=== PATIENT | female | born 1950 | race African-American/Black ===

== ENCOUNTER 2022-12-22 22:42 | Inpatient (IN) | payer OTHER ==
[2022-12-22] MEDS ORDERED: ACETAMINOPHEN 1000 MG/100 ML BAG IVPB ONE (23:17)
[2022-12-22] MEDS ORDERED: ONDANSETRON 4 MG/2 ML VIAL IVPUSH ONE (23:17)
[2022-12-22] MEDS ORDERED: SODIUM CHLORIDE 0.9% 500 ML INFUS.BAG IV ONE (23:19)
[2022-12-22] MEDS ORDERED: ACETAMINOPHEN INJECTION 100 ML IVPB ONE (23:25)
[2022-12-22] MEDS ORDERED: ONDANSETRON 4 MG/2 ML VIAL ONE ×2 (23:26→23:55)
[2022-12-22 23:59] LABS: MCHC 33.3 g/dl (32.0-36.0); MEAN CELL VOLUME 87.2 fl (80-96); MEAN PLT VOLUME 8.2 fl (7.5-11.1); PLATELET COUNT 296 10^3/uL (134-434); RBC 5.17 M/mm3 (3.60-5.2); RDW 14.4 % (11.6-15.6); WHITE BLOOD COUNT 12.6 K/mm3 (4.0-10.0)
[2022-12-23 00:29] LABS: POTASSIUM 4.1 mmol/L (3.5-5.1)
[2022-12-23 00:30] LABS: CALCIUM 10.2 mg/dL (8.5-10.1)
[2022-12-23 00:32] LABS: ALBUMIN 3.9 g/dl (3.4-5.0); BLOOD UREA NITROGEN 22.2 mg/dL (7-18); MAGNESIUM 1.8 mg/dL (1.8-2.4)
[2022-12-23 00:33] LABS: CREATININE 0.8 mg/dL (0.55-1.3)
[2022-12-23 04:00] LABS: EPI CELLS 6 /uL (0-25.1); HYALINE CASTS 5 /uL (0-3.1); URINE APPEARANCE CLEAR; URINE BACTERIA >9,000 /uL (0-1359); URINE BILIRUBIN NEGATIVE (NEGATIVE); URINE COLOR YELLOW; URINE GLUCOSE (UA) NEGATIVE (NEGATIVE); URINE KETONE NEGATIVE (NEGATIVE); URINE LEUK ESTERASE 2+ (NEGATIVE); URINE NITRITE POSITIVE (NEGATIVE); URINE PROTEIN NEGATIVE (NEGATIVE); URINE RBC 19 /uL (0-23.9); URINE UROBILINOGEN 0.2 mg/dL (0.2-1.0); URINE WBC 382 /uL (0-25.8)
[2022-12-23] MEDS ORDERED: CEFTRIAXONE 1 GM in DEXTROSE 5%-WATER - 100 ML IVPB ONE (04:16)
[2022-12-23] MEDS ORDERED: MECLIZINE HCL 12.5 MG TABLET PO ONE (04:16)
[2022-12-23] MEDS ORDERED: MECLIZINE HCL 12.5 MG TABLET ONE (04:21)
[2022-12-23] MEDS ORDERED: CEFTRIAXONE 1 GM/50 ML BAG ONE (04:22)
[2022-12-23 07:21] LABS: ANISOCYTOSIS 2+; MACROCYTOSIS 0; ROULEAU 1+
[2022-12-23] MEDS ORDERED: ENOXAPARIN NA (PORCINE) 40 MG/0.4 ML DISP.SYRIN SQ SCH (10:00)
[2022-12-23] MEDS ORDERED: VALSARTAN 80 MG TABLET PO SCH (10:00)
[2022-12-23] MEDS ORDERED: SODIUM CHLORIDE 1,000 ML IV SCH (10:00)
[2022-12-23] MEDS ORDERED: ROSUVASTATIN CA 20 MG TABLET ONE (10:46)
[2022-12-23] MEDS ORDERED: APIXABAN 5 MG TABLET ONE (10:46)
[2022-12-23] MEDS: CINACALCET HCL 30 MG TAB (FP) PO SCH ×2 (11:37→21:21)
[2022-12-23] MEDS: APIXABAN 5 MG TABLET PO SCH ×2 (11:37→21:21)
[2022-12-23] MEDS ORDERED: GABAPENTIN 400 MG CAPSULE ONE (16:08)
[2022-12-23] MEDS: GABAPENTIN 400 MG CAPSULE PO SCH ×2 (16:09→21:21)
[2022-12-23 17:16] VITALS: BMI 42.3
[2022-12-23] MEDS: ROSUVASTATIN CA 20 MG TABLET PO SCH (21:21)
[2022-12-24] MEDS: ACETAMINOPHEN 325 MG TABLET (FP) PO PRN (03:15)
[2022-12-24] MEDS: GABAPENTIN 400 MG CAPSULE PO SCH ×3 (05:29→21:18)
[2022-12-24] MEDS: CEFTRIAXONE 1 GM in DEXTROSE 5%-WATER - 50 ML IVPB SCH (09:49)
[2022-12-24] MEDS: CINACALCET HCL 30 MG TAB (FP) PO SCH (09:50)
[2022-12-24] MEDS: APIXABAN 5 MG TABLET PO SCH ×2 (09:50→21:18)
[2022-12-24] MEDS: ROSUVASTATIN CA 20 MG TABLET PO SCH (21:18)
[2022-12-25] MEDS: GABAPENTIN 400 MG CAPSULE PO SCH ×3 (05:15→21:15)
[2022-12-25] MEDS: CEFTRIAXONE 1 GM in DEXTROSE 5%-WATER - 50 ML IVPB SCH (09:55)
[2022-12-25] MEDS: APIXABAN 5 MG TABLET PO SCH ×2 (09:55→21:15)
[2022-12-25] MEDS: ROSUVASTATIN CA 20 MG TABLET PO SCH (21:15)
[2022-12-26] MEDS: GABAPENTIN 400 MG CAPSULE PO SCH (05:08)
[2022-12-26] MEDS: CEFTRIAXONE 1 GM in DEXTROSE 5%-WATER - 50 ML IVPB SCH (09:07)
[2022-12-26] MEDS: APIXABAN 5 MG TABLET PO SCH ×2 (09:07→21:40)
[2022-12-26] MEDS: ACETAMINOPHEN 325 MG TABLET (FP) PO PRN (09:07)
[2022-12-26 09:10] LABS: BASO % 0.5 % (0-2.0); EOS % 1.1 % (0-4.5); HEMATOCRIT 40.8 % (32.4-45.2); HEMOGLOBIN 13.2 GM/dL (10.7-15.3); LYMPH % 27.9 % (8-40); MCH 28.8 pg (25.7-33.7); MCHC 32.3 g/dl (32.0-36.0); MEAN CELL VOLUME 88.9 fl (80-96); MONO % 9.4 % (3.8-10.2); NEUT % 61.1 % (42.8-82.8); PLATELET COUNT 253 10^3/uL (134-434); RBC 4.59 M/mm3 (3.60-5.2); RDW 13.8 % (11.6-15.6); WHITE BLOOD COUNT 6.6 K/mm3 (4.0-10.0)
[2022-12-26 09:20] LABS: POTASSIUM 3.7 mmol/L (3.5-5.1)
[2022-12-26 09:29] LABS: BLOOD UREA NITROGEN 12.6 mg/dL (7-18); CALCIUM 9.6 mg/dL (8.5-10.1)
[2022-12-26 09:32] LABS: CREATININE 0.5 mg/dL (0.55-1.3)
[2022-12-26 09:34] LABS: BILIRUBIN,TOTAL 0.5 mg/dL (0.2-1); TOT PROT 6.2 g/dl (6.4-8.2)
[2022-12-26 09:40] LABS: ALBUMIN 2.9 g/dl (3.4-5.0)
[2022-12-26] MEDS: CINACALCET HCL 30 MG TAB (FP) PO SCH ×2 (09:50→21:39)
[2022-12-26] MEDS: LACTOBACILLUS ACIDOPHILUS 1 TABLET PO SCH (09:50)
[2022-12-26] MEDS: CEFUROXIME AXETIL 250 MG TABLET PO SCH ×2 (13:18→22:24)
[2022-12-26] MEDS: GABAPENTIN 300 MG CAPSULE PO SCH ×2 (13:18→21:39)
[2022-12-26] MEDS: ROSUVASTATIN CA 20 MG TABLET PO SCH (21:40)
[2022-12-27] MEDS: ACETAMINOPHEN 325 MG TABLET (FP) PO PRN (03:52)
[2022-12-27] MEDS: GABAPENTIN 300 MG CAPSULE PO SCH ×3 (06:17→23:00)
[2022-12-27] MEDS: CINACALCET HCL 30 MG TAB (FP) PO SCH ×2 (09:19→23:00)
[2022-12-27] MEDS: APIXABAN 5 MG TABLET PO SCH ×2 (09:19→23:00)
[2022-12-27] MEDS: LACTOBACILLUS ACIDOPHILUS 1 TABLET PO SCH (09:19)
[2022-12-27] MEDS: CEFUROXIME AXETIL 250 MG TABLET PO SCH ×2 (09:19→23:00)
[2022-12-27] MEDS: ROSUVASTATIN CA 20 MG TABLET PO SCH (23:00)
[2022-12-28] MEDS: ACETAMINOPHEN 325 MG TABLET (FP) PO PRN ×3 (04:28→23:42)
[2022-12-28] MEDS: GABAPENTIN 300 MG CAPSULE PO SCH ×2 (06:37→13:20)
[2022-12-28 09:21] LABS: BASO % 0.6 % (0-2.0); HEMATOCRIT 42.6 % (32.4-45.2); HEMOGLOBIN 13.7 GM/dL (10.7-15.3); LYMPH % 20.5 % (8-40); MCH 28.7 pg (25.7-33.7); MCHC 32.2 g/dl (32.0-36.0); MEAN CELL VOLUME 89.1 fl (80-96); MONO % 7.4 % (3.8-10.2); NEUT % 70.5 % (42.8-82.8); PLATELET COUNT 267 10^3/uL (134-434); RBC 4.78 M/mm3 (3.60-5.2); RDW 13.7 % (11.6-15.6); WHITE BLOOD COUNT 9.8 K/mm3 (4.0-10.0)
[2022-12-28 09:43] LABS: POTASSIUM 3.9 mmol/L (3.5-5.1)
[2022-12-28 09:51] LABS: ALBUMIN 2.9 g/dl (3.4-5.0); BLOOD UREA NITROGEN 13.1 mg/dL (7-18)
[2022-12-28 09:54] LABS: CREATININE 0.5 mg/dL (0.55-1.3)
[2022-12-28 09:56] LABS: BILIRUBIN,TOTAL 0.7 mg/dL (0.2-1); TOT PROT 6.2 g/dl (6.4-8.2)
[2022-12-28] MEDS: CEFUROXIME AXETIL 250 MG TABLET PO SCH ×2 (10:22→21:26)
[2022-12-28] MEDS: LACTOBACILLUS ACIDOPHILUS 1 TABLET PO SCH (10:22)
[2022-12-28] MEDS: APIXABAN 5 MG TABLET PO SCH ×2 (10:22→21:26)
[2022-12-28] MEDS: CINACALCET HCL 30 MG TAB (FP) PO SCH ×2 (10:22→21:26)
[2022-12-28] MEDS: LIDOCAINE 4% PATCH TP SCH (15:16)
[2022-12-28] MEDS: ROSUVASTATIN CA 20 MG TABLET PO SCH (21:25)
[2022-12-28] MEDS: GABAPENTIN 400 MG CAPSULE PO SCH (21:26)
[2022-12-28] MEDS: LIDOCAINE PATCH REMOVAL MC SCH (21:27)
[2022-12-29] MEDS: ACETAMINOPHEN 325 MG TABLET (FP) PO PRN (05:22)
[2022-12-29] MEDS: GABAPENTIN 400 MG CAPSULE PO SCH ×3 (05:24→21:05)
[2022-12-29 10:42] LABS: BASO % 0.6 % (0-2.0); EOS % 0.9 % (0-4.5); HEMATOCRIT 40.5 % (32.4-45.2); HEMOGLOBIN 13.1 GM/dL (10.7-15.3); LYMPH % 28.7 % (8-40); MCH 28.5 pg (25.7-33.7); MCHC 32.3 g/dl (32.0-36.0); MEAN CELL VOLUME 88.4 fl (80-96); MEAN PLT VOLUME 8.2 fl (7.5-11.1); MONO % 8.5 % (3.8-10.2); NEUT % 61.3 % (42.8-82.8); PLATELET COUNT 254 10^3/uL (134-434); RBC 4.58 M/mm3 (3.60-5.2); RDW 13.7 % (11.6-15.6); WHITE BLOOD COUNT 7.8 K/mm3 (4.0-10.0)
[2022-12-29] MEDS: LACTOBACILLUS ACIDOPHILUS 1 TABLET PO SCH (10:48)
[2022-12-29] MEDS: CINACALCET HCL 30 MG TAB (FP) PO SCH ×2 (10:48→21:06)
[2022-12-29] MEDS: LIDOCAINE 4% PATCH TP SCH (10:48)
[2022-12-29] MEDS: ASPIRIN COATED 81 MG TABLET.EC PO SCH (10:48)
[2022-12-29] MEDS: APIXABAN 5 MG TABLET PO SCH ×2 (10:49→21:05)
[2022-12-29] MEDS: CEFUROXIME AXETIL 250 MG TABLET PO SCH ×2 (10:49→21:05)
[2022-12-29 11:00] LABS: POTASSIUM 3.7 mmol/L (3.5-5.1)
[2022-12-29 11:11] LABS: BLOOD UREA NITROGEN 12.8 mg/dL (7-18); CALCIUM 8.9 mg/dL (8.5-10.1)
[2022-12-29 11:12] LABS: ALBUMIN 2.7 g/dl (3.4-5.0)
[2022-12-29 11:14] LABS: CREATININE 0.5 mg/dL (0.55-1.3)
[2022-12-29 11:16] LABS: BILIRUBIN,TOTAL 0.5 mg/dL (0.2-1)
[2022-12-29] MEDS: ROSUVASTATIN CA 20 MG TABLET PO SCH (21:05)
[2022-12-29] MEDS: SENNOSIDES 8.8 MG/5 ML SYRUP PO SCH (21:05)
[2022-12-29] MEDS: LIDOCAINE PATCH REMOVAL MC SCH (21:28)
[2022-12-30] MEDS: GABAPENTIN 400 MG CAPSULE PO SCH ×3 (05:23→21:25)
[2022-12-30] MEDS: POLYETHYLENE GLYCOL (HEALTHYLAX) 3350 17 GM PACKET PO SCH (06:04)
[2022-12-30] MEDS: LACTOBACILLUS ACIDOPHILUS 1 TABLET PO SCH (09:35)
[2022-12-30] MEDS: APIXABAN 5 MG TABLET PO SCH ×2 (09:35→21:25)
[2022-12-30] MEDS: ASPIRIN COATED 81 MG TABLET.EC PO SCH (09:35)
[2022-12-30] MEDS: CINACALCET HCL 30 MG TAB (FP) PO SCH (09:35)
[2022-12-30] MEDS: CEFUROXIME AXETIL 250 MG TABLET PO SCH ×2 (09:35→21:24)
[2022-12-30] MEDS: LIDOCAINE 4% PATCH TP SCH (11:18)
[2022-12-30] MEDS ORDERED: LACTATED RINGERS SOLUTION 1,000 ML/1,000 ML INFUS.BAG IV SCH (16:45)
[2022-12-30] MEDS: SENNOSIDES 8.8 MG/5 ML SYRUP PO SCH (21:24)
[2022-12-30] MEDS: ROSUVASTATIN CA 20 MG TABLET PO SCH (21:25)
[2022-12-30] MEDS: LIDOCAINE PATCH REMOVAL MC SCH (21:26)
[2022-12-31] MEDS: GABAPENTIN 400 MG CAPSULE PO SCH ×3 (06:21→21:19)
[2022-12-31] MEDS: POLYETHYLENE GLYCOL (HEALTHYLAX) 3350 17 GM PACKET PO SCH (06:21)
[2022-12-31] MEDS: LIDOCAINE 4% PATCH TP SCH (10:06)
[2022-12-31] MEDS: APIXABAN 5 MG TABLET PO SCH ×2 (10:06→21:18)
[2022-12-31] MEDS: CINACALCET HCL 30 MG TAB (FP) PO SCH ×2 (10:07→21:18)
[2022-12-31] MEDS: ASPIRIN COATED 81 MG TABLET.EC PO SCH (10:07)
[2022-12-31] MEDS: LACTOBACILLUS ACIDOPHILUS 1 TABLET PO SCH (10:07)
[2022-12-31 10:44] LABS: BASO % 0.9 % (0-2.0); EOS % 1.4 % (0-4.5); HEMATOCRIT 44.4 % (32.4-45.2); LYMPH % 29.3 % (8-40); MCH 28.1 pg (25.7-33.7); MCHC 31.5 g/dl (32.0-36.0); MEAN PLT VOLUME 8.3 fl (7.5-11.1); MONO % 6.4 % (3.8-10.2); PLATELET COUNT 276 10^3/uL (134-434); RBC 4.99 M/mm3 (3.60-5.2); RDW 13.8 % (11.6-15.6); WHITE BLOOD COUNT 7.5 K/mm3 (4.0-10.0)
[2022-12-31 11:17] LABS: POTASSIUM 4.4 mmol/L (3.5-5.1)
[2022-12-31 11:39] LABS: CALCIUM 10.1 mg/dL (8.5-10.1)
[2022-12-31 11:40] LABS: ALBUMIN 2.9 g/dl (3.4-5.0); PHOSPHOROUS 3.1 mg/dL (2.5-4.9)
[2022-12-31 11:42] LABS: CREATININE 0.5 mg/dL (0.55-1.3)
[2022-12-31 11:43] LABS: MAGNESIUM 1.8 mg/dL (1.8-2.4)
[2022-12-31 11:48] LABS: BLOOD UREA NITROGEN 14.7 mg/dL (7-18)
[2022-12-31 11:51] LABS: TOT PROT 6.7 g/dl (6.4-8.2)
[2022-12-31 11:57] LABS: BILIRUBIN,TOTAL 0.4 mg/dL (0.2-1)
[2022-12-31] MEDS: ROSUVASTATIN CA 20 MG TABLET PO SCH (21:19)
[2022-12-31] MEDS: SENNOSIDES 8.8 MG/5 ML SYRUP PO SCH (21:19)
[2022-12-31] MEDS: LIDOCAINE PATCH REMOVAL MC SCH (21:20)
[2023-01-01] MEDS: POLYETHYLENE GLYCOL (HEALTHYLAX) 3350 17 GM PACKET PO SCH (06:23)
[2023-01-01] MEDS: GABAPENTIN 400 MG CAPSULE PO SCH ×3 (06:23→22:06)
[2023-01-01] MEDS: CINACALCET HCL 30 MG TAB (FP) PO SCH ×3 (08:45→22:05)
[2023-01-01] MEDS: ASPIRIN COATED 81 MG TABLET.EC PO SCH (09:12)
[2023-01-01] MEDS: LACTOBACILLUS ACIDOPHILUS 1 TABLET PO SCH (09:12)
[2023-01-01] MEDS: APIXABAN 5 MG TABLET PO SCH ×2 (09:12→22:06)
[2023-01-01] MEDS: LIDOCAINE 4% PATCH TP SCH (09:12)
[2023-01-01] MEDS: LIDOCAINE PATCH REMOVAL MC SCH (22:06)
[2023-01-01] MEDS: ROSUVASTATIN CA 20 MG TABLET PO SCH (22:06)
[2023-01-01] MEDS: SENNOSIDES 8.8 MG/5 ML SYRUP PO SCH (22:06)
[2023-01-02] MEDS: GABAPENTIN 400 MG CAPSULE PO SCH ×3 (05:08→21:05)
[2023-01-02] MEDS: POLYETHYLENE GLYCOL (HEALTHYLAX) 3350 17 GM PACKET PO SCH (06:11)
[2023-01-02 08:56] LABS: EOS % 1.5 % (0-4.5); HEMATOCRIT 40.7 % (32.4-45.2); HEMOGLOBIN 13.3 GM/dL (10.7-15.3); LYMPH % 28.8 % (8-40); MCH 28.7 pg (25.7-33.7); MCHC 32.6 g/dl (32.0-36.0); MEAN CELL VOLUME 87.9 fl (80-96); MEAN PLT VOLUME 8.1 fl (7.5-11.1); MONO % 7.2 % (3.8-10.2); NEUT % 61.5 % (42.8-82.8); PLATELET COUNT 269 10^3/uL (134-434); RBC 4.63 M/mm3 (3.60-5.2); RDW 13.6 % (11.6-15.6); WHITE BLOOD COUNT 7.3 K/mm3 (4.0-10.0)
[2023-01-02 09:07] LABS: POTASSIUM 4.1 mmol/L (3.5-5.1)
[2023-01-02 09:14] LABS: CALCIUM 9.4 mg/dL (8.5-10.1)
[2023-01-02 09:15] LABS: ALBUMIN 2.8 g/dl (3.4-5.0); BLOOD UREA NITROGEN 18.9 mg/dL (7-18)
[2023-01-02 09:18] LABS: CREATININE 0.6 mg/dL (0.55-1.3)
[2023-01-02 09:20] LABS: BILIRUBIN,TOTAL 0.6 mg/dL (0.2-1); TOT PROT 6.3 g/dl (6.4-8.2)
[2023-01-02] MEDS: LIDOCAINE 4% PATCH TP SCH (09:29)
[2023-01-02] MEDS: LACTOBACILLUS ACIDOPHILUS 1 TABLET PO SCH (09:30)
[2023-01-02] MEDS: CINACALCET HCL 30 MG TAB (FP) PO SCH ×2 (09:30→21:05)
[2023-01-02] MEDS: APIXABAN 5 MG TABLET PO SCH ×2 (09:30→21:05)
[2023-01-02] MEDS: ASPIRIN COATED 81 MG TABLET.EC PO SCH (09:30)
[2023-01-02] MEDS: LIDOCAINE PATCH REMOVAL MC SCH (21:05)
[2023-01-02] MEDS: ROSUVASTATIN CA 20 MG TABLET PO SCH (21:05)
[2023-01-02] MEDS: SENNOSIDES 8.8 MG/5 ML SYRUP PO SCH (21:06)
[2023-01-03] MEDS: GABAPENTIN 400 MG CAPSULE PO SCH (05:36)
[2023-01-03] MEDS: POLYETHYLENE GLYCOL (HEALTHYLAX) 3350 17 GM PACKET PO SCH (07:21)
[2023-01-03] MEDS: CINACALCET HCL 30 MG TAB (FP) PO SCH ×2 (10:02→22:49)
[2023-01-03] MEDS: LIDOCAINE 4% PATCH TP SCH (10:02)
[2023-01-03] MEDS: LACTOBACILLUS ACIDOPHILUS 1 TABLET PO SCH (10:02)
[2023-01-03] MEDS: APIXABAN 5 MG TABLET PO SCH ×2 (10:02→22:49)
[2023-01-03] MEDS: ASPIRIN COATED 81 MG TABLET.EC PO SCH (10:03)
[2023-01-03] MEDS: ACETAMINOPHEN 325 MG TABLET (FP) PO PRN (12:08)
[2023-01-03] MEDS: GABAPENTIN 300 MG CAPSULE PO SCH ×2 (14:11→22:48)
[2023-01-03] MEDS: SENNOSIDES 8.8 MG/5 ML SYRUP PO SCH (22:48)
[2023-01-03] MEDS: ROSUVASTATIN CA 20 MG TABLET PO SCH (22:48)
[2023-01-03] MEDS: LIDOCAINE PATCH REMOVAL MC SCH (22:49)
[2023-01-04] MEDS: GABAPENTIN 300 MG CAPSULE PO SCH ×3 (06:13→22:11)
[2023-01-04] MEDS: POLYETHYLENE GLYCOL (HEALTHYLAX) 3350 17 GM PACKET PO SCH (06:13)
[2023-01-04] MEDS: ACETAMINOPHEN 325 MG TABLET (FP) PO PRN (10:01)
[2023-01-04] MEDS: LIDOCAINE 4% PATCH TP SCH (10:01)
[2023-01-04] MEDS: LACTOBACILLUS ACIDOPHILUS 1 TABLET PO SCH (10:01)
[2023-01-04] MEDS: APIXABAN 5 MG TABLET PO SCH ×2 (10:01→22:11)
[2023-01-04] MEDS: CINACALCET HCL 30 MG TAB (FP) PO SCH ×2 (10:01→22:11)
[2023-01-04] MEDS: ASPIRIN COATED 81 MG TABLET.EC PO SCH (10:01)
[2023-01-04] MEDS: ROSUVASTATIN CA 20 MG TABLET PO SCH (22:11)
[2023-01-04] MEDS: SENNOSIDES 8.8 MG/5 ML SYRUP PO SCH (22:11)
[2023-01-04] MEDS: LIDOCAINE PATCH REMOVAL MC SCH (22:12)
[2023-01-05] MEDS: POLYETHYLENE GLYCOL (HEALTHYLAX) 3350 17 GM PACKET PO SCH (06:25)
[2023-01-05] MEDS: GABAPENTIN 300 MG CAPSULE PO SCH ×3 (06:25→21:42)
[2023-01-05] MEDS: ASPIRIN COATED 81 MG TABLET.EC PO SCH (10:03)
[2023-01-05] MEDS: CINACALCET HCL 30 MG TAB (FP) PO SCH ×2 (10:03→21:42)
[2023-01-05] MEDS: LIDOCAINE 4% PATCH TP SCH (10:03)
[2023-01-05] MEDS: APIXABAN 5 MG TABLET PO SCH ×2 (10:03→21:42)
[2023-01-05] MEDS: LACTOBACILLUS ACIDOPHILUS 1 TABLET PO SCH (10:03)
[2023-01-05] MEDS: ACETAMINOPHEN 325 MG TABLET (FP) PO PRN (17:45)
[2023-01-05] MEDS: ROSUVASTATIN CA 20 MG TABLET PO SCH (21:42)
[2023-01-05] MEDS: LIDOCAINE PATCH REMOVAL MC SCH (21:42)
[2023-01-05] MEDS: SENNOSIDES 8.8 MG/5 ML SYRUP PO SCH (21:42)
[2023-01-06] MEDS: GABAPENTIN 300 MG CAPSULE PO SCH ×3 (05:36→21:43)
[2023-01-06] MEDS: POLYETHYLENE GLYCOL (HEALTHYLAX) 3350 17 GM PACKET PO SCH (06:11)
[2023-01-06] MEDS: CINACALCET HCL 30 MG TAB (FP) PO SCH ×2 (10:10→21:43)
[2023-01-06] MEDS: APIXABAN 5 MG TABLET PO SCH ×2 (10:10→21:43)
[2023-01-06] MEDS: ASPIRIN COATED 81 MG TABLET.EC PO SCH (10:10)
[2023-01-06] MEDS: LIDOCAINE 4% PATCH TP SCH (10:11)
[2023-01-06] MEDS: ACETAMINOPHEN 325 MG TABLET (FP) PO PRN (10:11)
[2023-01-06] MEDS: ROSUVASTATIN CA 20 MG TABLET PO SCH (21:43)
[2023-01-06] MEDS: SENNOSIDES 8.8 MG/5 ML SYRUP PO SCH (21:43)
[2023-01-06] MEDS: LIDOCAINE PATCH REMOVAL MC SCH (21:44)
[2023-01-07] MEDS: POLYETHYLENE GLYCOL (HEALTHYLAX) 3350 17 GM PACKET PO SCH (06:19)
[2023-01-07] MEDS: GABAPENTIN 300 MG CAPSULE PO SCH ×3 (06:19→22:13)
[2023-01-07] MEDS: CINACALCET HCL 30 MG TAB (FP) PO SCH ×2 (09:55→22:13)
[2023-01-07] MEDS: LIDOCAINE 4% PATCH TP SCH (09:55)
[2023-01-07] MEDS: ASPIRIN COATED 81 MG TABLET.EC PO SCH (09:55)
[2023-01-07] MEDS: APIXABAN 5 MG TABLET PO SCH ×2 (09:55→22:13)
[2023-01-07] MEDS: SENNOSIDES 8.8 MG/5 ML SYRUP PO SCH (22:12)
[2023-01-07] MEDS: ACETAMINOPHEN 325 MG TABLET (FP) PO PRN (22:13)
[2023-01-07] MEDS: LIDOCAINE PATCH REMOVAL MC SCH (22:14)
[2023-01-07] MEDS: ROSUVASTATIN CA 20 MG TABLET PO SCH (22:14)
[2023-01-08] MEDS: GABAPENTIN 300 MG CAPSULE PO SCH (05:33)
[2023-01-08] MEDS: POLYETHYLENE GLYCOL (HEALTHYLAX) 3350 17 GM PACKET PO SCH (06:05)
[2023-01-08 08:48] VITALS: BP 109/59; PULSE 68; RESP 19; TEMP 98
[2023-01-08] MEDS: CINACALCET HCL 30 MG TAB (FP) PO SCH (09:32)
[2023-01-08] MEDS: APIXABAN 5 MG TABLET PO SCH (09:32)
[2023-01-08] MEDS: LIDOCAINE 4% PATCH TP SCH (09:32)
[2023-01-08] MEDS: ASPIRIN COATED 81 MG TABLET.EC PO SCH (09:32)
== END 2023-01-08 13:10 | DRG 690 ==
LOC: JER 22:42 → JERBED 12-23 04:03 → OBSVTOIN 12-23 04:03 → J5S 12-23 16:41
PROVIDERS: ADMIT Internal Medicine; ATTEND Internal Medicine
DX: N39.0 Urinary tract infection, site not specified (principal); Z68.41 Body mass index [BMI] 40.0-44.9, adult; I10 Essential (primary) hypertension; R73.03 Prediabetes; B96.20 Unspecified Escherichia coli [E. coli] as the cause of diseases classified elsewhere; D72.829 Elevated white blood cell count, unspecified; E78.5 Hyperlipidemia, unspecified; E86.0 Dehydration; G62.9 Polyneuropathy, unspecified; I48.0 Paroxysmal atrial fibrillation; M75.01 Adhesive capsulitis of right shoulder; R42 Dizziness and giddiness; E66.01 Morbid (severe) obesity due to excess calories; R19.7 Diarrhea, unspecified; G89.29 Other chronic pain
CPT/HCPCS: 0241U-QW; 36415; 70450-TC; 76705-TC; 80053; 81003; 83605; 83690; 83735; 84100; 84484; 85025; 87040; 87086; 87186; 87635; 93005; 93010; 97116-GP; 97162-GP; 99285-25